=== PATIENT | female | born 1990 ===

== ENCOUNTER 2016-12-31 12:59 | Emergency (ER) | payer SELFPAY ==
[2016-12-31 13:24] VITALS: BP 103/59
[2016-12-31] MEDS ORDERED: Albuterol 2.5 MG/3 ML NEB.SOL* (0.083%) INH ONE (13:38)
--- NOTE | 2016-12-31 13:44 | UC ---
Respiratory Complaint HPI - HPI Summary HPI Summary: patient started having sharp pains in the center of her chest this morning. they did not go away so she came to have them checked. it was after her cigarette and coffee this morning. no significant med hx and does not take medication on a regular basis. - History of Current Complaint Chief Complaint: UCChestPain Stated Complaint: ACHY CHEST/RESP Time Seen by Provider: 12/31/16 13:24 Hx Obtained From: Patient Hx Last Menstrual Period: Pt states has IUD - only spotting. ?: No Onset/Duration: Sudden Onset, Lasting Hours Timing: Intermittent Episodes Severity Initially: Moderate Severity Currently: Mild Character: Cough: Nonproductive Aggravating Factors: Exertion, Deep Breaths Alleviating Factors: Nothing Associated Signs And Symptoms: Positive: Dyspnea, Wheezing, Nasal Congestion - Risk Factors Cardiac Risk Factors: Smoking - Allergies/Home Medications Allergies/Adverse Reactions: Allergies Allergy/AdvReac Type Severity Reaction Status Date / Time No Known Allergies Allergy Verified 12/31/16 13:15 PMH/Surg Hx/FS Hx/Imm Hx Previously Healthy: Yes - Surgical History Surgical History: None - Family History Known Family History: Negative: Cardiac Disease, Hypertension - Social History Alcohol Use: Rare Substance Use Type: None Smoking Status (MU): Heavy Every Day Tobacco Smoker Amount Used/How Often: 1 pack/ a day Review of Systems Constitutional: Negative Skin: Negative Eyes: Negative ENT: Negative Respiratory: Shortness Of Breath, Cough Cardiovascular: Chest Pain Gastrointestinal: Negative Genitourinary: Negative Motor: Negative Neurovascular: Negative Musculoskeletal: Negative Neurological: Negative Psychological: Negative All Other Systems Reviewed And Are Negative: Yes Physical Exam Triage Information Reviewed: Yes Appearance: Well-Appearing, Well-Nourished, Pain Distress Vital Signs: Initial Vital Signs Temp 99.4 F 12/31/16 13:16 Pulse 69 12/31/16 13:16 Resp 20 12/31/16 13:16 BP 103/59 12/31/16 13:16 Pulse Ox 98 12/31/16 13:16 Vital Signs Reviewed: Yes Eye Exam: Normal Eyes: Positive: Conjunctiva Clear ENT: Positive: Normal ENT inspection, Hearing grossly normal, Pharynx normal, TMs normal Dental Exam: Normal Neck exam: Normal Neck: Positive: Supple, Nontender, No Lymphadenopathy Respiratory Exam: Normal Respiratory: Positive: Decreased breath sounds, Wheezing, Inspiration, Other: - sternal tenderness with respiration Cardiovascular Exam: Normal Cardiovascular: Positive: RRR, No Murmur, Pulses Normal Abdominal Exam: Normal Abdomen Description: Positive: Nontender, No Organomegaly, Soft Bowel Sounds: Positive: Present Musculoskeletal Exam: Normal Musculoskeletal: Positive: Strength Intact, ROM Intact, No Edema Neurological Exam: Normal Neurological: Positive: Alert, Muscle Tone Normal Psychological Exam: Normal Skin Exam: Normal UC Diagnostic Evaluation - Laboratory O2 Sat by Pulse Oximetry: 98 Respiratory Course/Dx - Course Course Of Treatment: Hx obtained, exam performed, EKG was NSR, albuterol treatment given with good results. patient is a chain smoker, smokes 3-5 cigs every couple hours. has been this way for the past 17 years. started on a LABA and DIXIE and a week of prednisone - Differential Dx/Diagnosis Differential Diagnosis/HQI/PQRI: Asthma, Bronchitis, Exacerbation Of COPD Provider Diagnoses: bronchitis. tobacco abuse. allergic rhinitis Discharge - Discharge Plan Condition: Stable Disposition: HOME Patient Education Materials: Secondhand Smoke Exposure in Children (ED), Acute Bronchitis (ED) Additional Instructions: 1. Use the medications as directed 2. A dilay antihistamine may help with your allergie type symtpoms. 3. Stop smoking 4. Follow up with any increase in symtpoms
== END 2016-12-31 14:32 | disposition home or self-care (01) ==
LOC: UCEAST 12:59
DX: J40 Bronchitis, not specified as acute or chronic (principal); J30.9 Allergic rhinitis, unspecified; F17.210 Nicotine dependence, cigarettes, uncomplicated
CPT/HCPCS: 93005; 99202; G0463